=== PATIENT | female | born 1995 | race Two or more races ===

== ENCOUNTER 2021-08-28 22:06 | Emergency (ER) | payer OTHER ==
[~2021-08-28] VITALS: Ht 162.6 cm; Wt 66.7 kg
[2021-08-28] MEDS ORDERED: PRENA1 CHEW TA1.4 MG PO (22:25)
[2021-08-28] MEDS ORDERED: FOLIC ACID1 MG PO (22:25)
[2021-08-28] MEDS ORDERED: IRON325 MG PO (22:26)
== END 2021-08-29 03:55 ==
LOC: ER 22:06
DX: O20.9 Hemorrhage in early pregnancy, unspecified (principal); Z3A.15 15 weeks gestation of pregnancy